=== PATIENT | male | born 1975 | race African-American/Black ===

== ENCOUNTER 2023-08-12 07:48 | Emergency (ER) | payer SELFPAY ==
[2023-08-12] MEDS ORDERED: HYDROcodone/Acetaminophen 10/325 mg Tablet ONE (08:46)
[2023-08-12 09:24] LABS: Hematocrit 31.8 % (38.8-50.0); Hemoglobin 10.5 g/dL (13.5-17.5); Mean Corpuscular Hemoglobin 29.1 pg (27.0-33.0); Mean Corpuscular Volume 88.1 fl (81.2-95.1); Mean Platelet Volume 10.2 fl (7.4-10.4); Platelet Count 317 10x3/uL (150-450); RBC Distribution Width 11.9 % (11.5-14.5); Red Blood Cell (RBC) Count 3.61 10x6/uL (4.32-5.72); White Blood Cell (WBC) Count 14.6 10x3/uL (3.5-10.5)
[2023-08-12 09:59] LABS: MDiff Complete? YES
[2023-08-12 10:01] LABS: ALT (SGPT) 22 U/L (8-55); AST (SGOT) 14 U/L (5-34); Albumin 3.5 g/dL (3.5-5.0); Alkaline Phosphatase 36 U/L (40-110); Anion Gap 15 mmol/L (10-20); BUN (Urea Nitrogen) 26 mg/dL (8.9-20.6); Bilirubin, Total 1.4 mg/dL (0.2-1.2); Calc. Creatinine Clearance 0 mL/min (70-130); Calcium 8.5 mg/dL (7.8-10.44); Carbon Dioxide 17 mmol/L (22-29); Chloride 108 mmol/L (98-107); Estimated GFR 43; Globulin 3.1 g/dL (2.4-3.5); Glucose 232 mg/dL (70-105); Potassium 4.6 mmol/L (3.5-5.1); Protein, Total 6.6 g/dL (6.0-8.3); Sodium 135 mmol/L (136-145)
[2023-08-12] MEDS ORDERED: Magnevist 469MG/ML 20 ML VIAL ONE (10:50)
[2023-08-12 10:51] LABS: Band 17 % (5-11); Lymphocytes 15 % (21-51); Monocytes 3 % (0-10); Neutrophil 64 % (42-75); Reactive Lymphocytes 1 % (0-10)
[2023-08-12 11:06] LABS: Platelet Adequacy Comment Appears Adequate; RBC Morph Comment Within Normal Limits
[2023-08-12] MEDS ORDERED: Vancomycin 1 GM VIAL ONE (16:14)
[2023-08-12] MEDS ORDERED: Morphine 4 MG/ML VIAL ONE (16:14)
[2023-08-12] MEDS ORDERED: Piperacillin/Tazobactam 4.5 GM VIAL ONE (16:14)
[2023-08-12] MEDS ORDERED: Ondansetron PF 4 MG/2 ML Vial ONE (16:14)
== END 2023-08-12 19:46 | disposition short-term general hospital (02) ==
LOC: CSHERS 07:48
DX: L03.116 Cellulitis of left lower limb (principal); E11.319 Type 2 diabetes mellitus with unspecified diabetic retinopathy without macular edema; I10 Essential (primary) hypertension; E78.5 Hyperlipidemia, unspecified; Z79.4 Long term (current) use of insulin; Z79.899 Other long term (current) drug therapy
CPT/HCPCS: 36415; 80053; 83605; 85025; 86140; 96374; 96375; A9579; J2270; J2405; J2543; J3370

== ENCOUNTER 2023-09-11 15:20 | Outpatient (CLI) | payer OTHER | END 2023-09-11 15:21 | disposition home or self-care (01) | LOC: CSHWCC 15:20 | PROVIDERS: ATTEND Physician Assistant | DX: L89.600 Pressure ulcer of unspecified heel, unstageable (principal); I87.323 Chronic venous hypertension (idiopathic) with inflammation of bilateral lower extremity; E11.621 Type 2 diabetes mellitus with foot ulcer; I12.9 Hypertensive chronic kidney disease with stage 1 through stage 4 chronic kidney disease, or unspecified chronic kidney disease; N18.9 Chronic kidney disease, unspecified | CPT/HCPCS: 97597 ==

== ENCOUNTER 2023-09-18 10:00 | Outpatient (CLI) | payer OTHER | END 2023-09-18 10:01 | disposition home or self-care (01) | LOC: CSHWCC 10:00 | PROVIDERS: ATTEND Physician Assistant | DX: E11.621 Type 2 diabetes mellitus with foot ulcer (principal); L97.529 Non-pressure chronic ulcer of other part of left foot with unspecified severity; I12.9 Hypertensive chronic kidney disease with stage 1 through stage 4 chronic kidney disease, or unspecified chronic kidney disease; L89.600 Pressure ulcer of unspecified heel, unstageable; I87.323 Chronic venous hypertension (idiopathic) with inflammation of bilateral lower extremity; L97.519 Non-pressure chronic ulcer of other part of right foot with unspecified severity; N18.9 Chronic kidney disease, unspecified | CPT/HCPCS: 97597 ==

== ENCOUNTER 2023-11-01 12:41 | Outpatient (CLI) | payer SELFPAY | END 2023-11-01 12:42 | disposition home or self-care (01) | LOC: CSHWCC 12:41 | PROVIDERS: ATTEND Physician Assistant | DX: L89.600 Pressure ulcer of unspecified heel, unstageable (principal); I87.323 Chronic venous hypertension (idiopathic) with inflammation of bilateral lower extremity; E11.621 Type 2 diabetes mellitus with foot ulcer; L97.509 Non-pressure chronic ulcer of other part of unspecified foot with unspecified severity; I12.9 Hypertensive chronic kidney disease with stage 1 through stage 4 chronic kidney disease, or unspecified chronic kidney disease; N18.9 Chronic kidney disease, unspecified | CPT/HCPCS: 97597 ==

== ENCOUNTER 2024-09-16 09:55 | Outpatient (CLI) | payer MEDICARE, MEDICAID | END 2024-09-16 09:56 | disposition home or self-care (01) | LOC: CSHWCC 09:55 | PROVIDERS: ATTEND Nurse Practitioner Family | DX: E11.621 Type 2 diabetes mellitus with foot ulcer (principal); L97.521 Non-pressure chronic ulcer of other part of left foot limited to breakdown of skin; I89.0 Lymphedema, not elsewhere classified; N18.9 Chronic kidney disease, unspecified | CPT/HCPCS: 97597; G0463; 99213 ==

== ENCOUNTER 2024-09-30 12:44 | Outpatient (CLI) | payer MEDICARE, MEDICAID | END 2024-09-30 12:45 | disposition home or self-care (01) | LOC: CSHWCC 12:44 | PROVIDERS: ATTEND Nurse Practitioner Family | DX: E11.621 Type 2 diabetes mellitus with foot ulcer (principal); L97.521 Non-pressure chronic ulcer of other part of left foot limited to breakdown of skin; E11.22 Type 2 diabetes mellitus with diabetic chronic kidney disease; N18.9 Chronic kidney disease, unspecified; I89.0 Lymphedema, not elsewhere classified | CPT/HCPCS: 97597 ==

== ENCOUNTER 2024-10-15 15:51 | Outpatient (CLI) | payer MEDICARE, MEDICAID | END 2024-10-15 15:52 | disposition home or self-care (01) | LOC: CSHWCC 15:51 | PROVIDERS: ATTEND Nurse Practitioner Family | DX: E11.621 Type 2 diabetes mellitus with foot ulcer (principal); L97.521 Non-pressure chronic ulcer of other part of left foot limited to breakdown of skin; E11.22 Type 2 diabetes mellitus with diabetic chronic kidney disease; N18.9 Chronic kidney disease, unspecified; I89.0 Lymphedema, not elsewhere classified | CPT/HCPCS: 97597 ==

== ENCOUNTER 2025-03-28 10:30 | Outpatient (CLI) | payer MEDICARE, MEDICAID | END 2025-03-28 10:31 | disposition home or self-care (01) | LOC: CSHWCC 10:30 | PROVIDERS: ATTEND Nurse Practitioner Family | DX: E11.621 Type 2 diabetes mellitus with foot ulcer (principal); E11.22 Type 2 diabetes mellitus with diabetic chronic kidney disease; L97.521 Non-pressure chronic ulcer of other part of left foot limited to breakdown of skin; N18.9 Chronic kidney disease, unspecified; I89.0 Lymphedema, not elsewhere classified; E66.01 Morbid (severe) obesity due to excess calories; H54.3 Unqualified visual loss, both eyes | CPT/HCPCS: 11042 ==

== ENCOUNTER 2025-05-06 15:52 | Outpatient (CLI) | payer MEDICARE, MEDICAID | END 2025-05-06 15:53 | disposition home or self-care (01) | LOC: CSHWCC 15:52 | PROVIDERS: ATTEND Nurse Practitioner Family | DX: E11.621 Type 2 diabetes mellitus with foot ulcer (principal); L97.521 Non-pressure chronic ulcer of other part of left foot limited to breakdown of skin; I89.0 Lymphedema, not elsewhere classified; E11.22 Type 2 diabetes mellitus with diabetic chronic kidney disease; N18.9 Chronic kidney disease, unspecified; E66.01 Morbid (severe) obesity due to excess calories; H54.3 Unqualified visual loss, both eyes | CPT/HCPCS: 29581; G0463; 99212 ==